=== PATIENT | female | born 2000 | race Two or more races ===

== ENCOUNTER 2022-02-05 15:21 | Emergency (ER) | payer OTHER ==
[~2022-02-05] VITALS: Ht 157.5 cm; Wt 81.6 kg
[2022-02-05] MEDS ORDERED: PRENATA CHEWAB1 EACH PO (15:34)
== END 2022-02-06 16:31 | disposition home or self-care (01) ==
LOC: ER 15:21
DX: O03.9 Complete or unspecified spontaneous abortion without complication (principal)